=== PATIENT | female | born 1965 | race Caucasian/White ===

== ENCOUNTER → 2016-09-21 | Outpatient (CLI) | payer BC ==
[~2016-09-21] MED LIST: ALBUTEROL MININEB NEB; CIPRO PO; FLEXERIL PO; FLOXIN OTIC5 M1 OT; LORTAB 10/500 T1 TAB PO; NEXIUM20 MG PO; PYRIDIUM PO; TOPROL XL PO; VICODIN 5/500 T1 TAB PO
--- NOTE | ~2016-09-21 | CT57 ---
[facility] A Service of [facility] & [facility] / [facility] RADIOLOGY TEXT RESULTS PATIENT: VANNESSA LOZA LOCATION: [facility] : 61 UNIT #: [id number] AGE: [address]: Madina Owens APRN SEX: F ORDER DR: [id number] [facility] [address] [place], [place] [address] [id number] O MR#: [id number] Acc #: [id number] NAME: VANNESSA LOZA : 1965 SEX: F STUDY DATE/TIME: 09/21/2016 9:20 UNIT: [facility] ROOM: STUDY DESCRIPTION: CT Chest Wo Cont Attending Physician: Madina Owens A.P.R.N. Referring Physician: Madina Owens A.P.R.N. Ordering Physician: Madina Owens A.P.R.N. Primary Care Physician: John Garcia M.D. MEDICAL IMAGING REPORT This report is preliminary unless electronic signature is present EXAM CT of the chest without contrast INDICATIONS 51-year-old female with followup pulmonary nodules. TECHNIQUE CT scan of the chest was performed without contrast. Coronal and sagittal reformatted images obtained. This CT exam was performed with one or more of the following radiation dose reduction techniques: Automatic exposure control, adjustment of mA and/or kV according to patient size, and iterative reconstruction. Comparison with 02/21/2016. FINDINGS Emphysema. There is increased atelectasis in the left lower lobe. There are some scattered tiny micronodules in the lungs, which are stable. There is decreased atelectasis within the lingula. 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 No lymphadenopathy. Stable scarring adjacent to the right side of the mediastinum. No pleural effusion. Limited imaging of the upper abdomen demonstrates cholecystectomy. IMPRESSION 1. Increased atelectasis in the left lower lobe. Improved atelectasis in the lingula. 2. Stable emphysema. 3. Stable scattered tiny micronodules. Dictated by... Tal Littlejohn M.D. THIS IS AN ELECTRONICALLY VERIFIED REPORT Tal Littlejohn M.D. at 09/22/2016 11:30 AM [facility] A Service of [facility] & [facility] / [facility] RADIOLOGY TEXT RESULTS PATIENT: VANNESSA LOZA LOCATION: [facility] ACC #: [id number] : [birth year] UNIT #: [id number] AGE: [address]: Madina Owens APRN SEX: F ORDER DR: Dat TD: 09/21/2016 23:59 JOB #: [id number] MEDICAL IMAGING REPORT Page 1 of 1 COPY
== END | disposition home or self-care (01) ==
LOC: CCAT 09:01
DX: R93.8 Abnormal findings on diagnostic imaging of other specified body structures (principal); J98.11 Atelectasis; J43.9 Emphysema, unspecified; R91.8 Other nonspecific abnormal finding of lung field
CPT/HCPCS: 71250

== ENCOUNTER 2017-03-22 12:40 | Emergency (ER) | payer BC ==
[~2017-03-22] VITALS: Ht 167.6 cm; Wt 47.2 kg
--- NOTE | ~2017-03-22 | EKG ---
PATIENT: VANNESSA LOZA UNIT #: [id number] Ventricular Rate: 87 BPM Atrial Rate: 87 BPM P-R Interval: 130 ms QRS Duration: 84 ms Q-T Interval: 380 ms QTC Calculation(Bezet): 457 ms P [place]: 74 degrees Calculated R [place]: 86 degrees Calculated T [place]: 35 degrees Diagnosis Line: Normal sinus rhythm Diagnosis Line: Nonspecific ST abnormality Diagnosis Line: Abnormal ECG Diagnosis Line: No previous ECGs available Diagnosis Line: Confirmed by CALEB SIU MD ([id number]) on Diagnosis Line: 03/22/2017 3:27:42 PM INTERPRETING MD: SHERRON VICKERS
--- NOTE | ~2017-03-22 | CR72 ---
[facility] A Service of [facility] & [facility] / [facility] RADIOLOGY TEXT RESULTS PATIENT: VANNESSA LOZA LOCATION: [facility] : 61 UNIT #: [id number] AGE: [address]: Janice He MD SEX: F ORDER DR: [id number] [facility] [address] [place], [place] [address] [id number] E MR#: [id number] Acc #: [id number] NAME: VANNESSA LOZA : 1965 SEX: F STUDY DATE/TIME: 03/22/2017 13:24 UNIT: [facility] ROOM: STUDY DESCRIPTION: CR Chest Single View Portable Attending Physician: Janice He M.D. Ordering Physician: Janice He M.D. Primary Care Physician: Primary Care Physician No MEDICAL IMAGING REPORT This report is preliminary unless electronic signature is present EXAM Portable chest 03/22/2017 at 13:24 HISTORY Shortness of air today. COMPARISON 11:49 FINDINGS Portable view of the chest is obtained. This compared to a study from about an hour and a half ago. Lungs are hyperinflated. There are no infiltrates and the heart size normal. Dictated by... Dario Barcenas M.D. THIS IS AN ELECTRONICALLY VERIFIED REPORT Dario Barcenas M.D. at 03/22/2017 9:06 PM TRUDI/madelyn TD: 03/22/2017 18:46 JOB #: [id number] MEDICAL IMAGING REPORT Page 1 of 1 COPY
[2017-03-22 13:19] LABS: POC - TROPONIN <0.05 ng/mL (<=0.05)
[2017-03-22 13:22] LABS: BASOPHIL% 0.5 % (0-2.5); EOSINOPHIL# 0.2 X10e3 (0-0.7); LYMPHOCYTE# 2.3 X10e3 (1.0-3.5); LYMPHOCYTE% 30.1 % (17.0-45.0); MEAN CELL VOLUME 95.3 FL (83-96); MEAN CORPUSCULAR HEMOGLOBIN 32.5 PG (28-34); MEAN CORPUSCULAR HGB CONC 34.1 g/dL (30-36); MEAN PLATELET VOLUME 7.3 FL (6.5-11.5); MONOCYTE# 0.8 X10e3 (0-1.0); MONOCYTE% 10.7 % (3.0-12.0); NEUTROPHIL# 4.3 X10e3 (1.5-7.1); NEUTROPHIL% 56.7 % (40-75); PLATELET COUNT 205 X10e3 (140-420); RED BLOOD COUNT 4.31 X10e (3.90-5.30); RED CELL DISTRIBUTION WIDTH 13.1 % (11.0-15.5); WHITE BLOOD COUNT 7.5 X10e3 (4.0-10.5)
[2017-03-22 13:25] LABS: DIFF IND NO
[2017-03-22 13:44] LABS: PROTHROMBIN TIME (PATIENT) 11.2 SECONDS (10.0-11.7)
[2017-03-22 13:51] LABS: CALCIUM SERUM 9.2 mg/dL (8.4-10.2); CREATININE SERUM 0.9 mg/dL (0.6-1.4); POTASSIUM 3.7 mmol/L (3.5-5.1)
[2017-03-22 14:56] LABS: POC - CKMB <1.0 ng/mL (0.0-7.9); POC - TROPONIN <0.05 ng/mL (<=0.05)
== END 2017-03-22 15:54 | disposition home or self-care (01) ==
LOC: CED 12:40
PROVIDERS: Emergency Medicine
DX: J20.9 Acute bronchitis, unspecified (principal); F17.200 Nicotine dependence, unspecified, uncomplicated; Z88.2 Allergy status to sulfonamides; Z88.1 Allergy status to other antibiotic agents
CPT/HCPCS: 36415; 71010; 80048; 82553; 84484; 85025; 85379; 85610; 93005; 99284